=== PATIENT | male | born 1970 | race Caucasian/White ===

== ENCOUNTER 2017-12-05 12:50 | Emergency (ER) | payer OTHER ==
[~2017-12-05] VITALS: Ht 187.9 cm; Wt 88.9 kg
[~2017-12-05 12:50] MED LIST: BACTROBAN CREAM15 GM T; CLARITIN10 MG PO; CLEOCIN150 MG PO; ERY TABS333 MG PO; FLEXERIL5 MG PO; FLONASE 0.05% 121 EA NAS; FLONASE ALLERG9.9 ML NAS; HYDROCODONE BIT1 T11 PO; LEVOFLOXACIN500 MG PO; MEDROL DOSEPAK4 MG PO; NAPROSYN500 MG PO; NKHM; PREDNISONE20 MG PO; ROBITUSSIN AC 110 ML PO; VIBRAMYCIN100 MG PO; ZYRTEC10 MG PO
== END 2017-12-05 13:58 | disposition home or self-care (01) ==
LOC: ED 12:50
DX: M79.601 Pain in right arm (principal); T50.905A Adverse effect of unspecified drugs, medicaments and biological substances, initial encounter; Z88.1 Allergy status to other antibiotic agents; Z88.8 Allergy status to other drugs, medicaments and biological substances; Y92.89 Other specified places as the place of occurrence of the external cause